=== PATIENT | female | born 1950 | race Caucasian/White ===

== ENCOUNTER 2021-02-13 21:46 | Inpatient (IN) | payer MEDICARE, OTHER ==
[~2021-02-13] VITALS: Ht 162.6 cm; Wt 86.6 kg
[2021-02-13] MEDS ORDERED: VALP250C3 PO (22:26)
[2021-02-13] MEDS ORDERED: DOCU100C36 PO (22:26)
[2021-02-13] MEDS ORDERED: ACET-2154 PO (22:26)
[2021-02-13] MEDS ORDERED: GUAI5SYR PO (22:26)
[2021-02-13] MEDS ORDERED: ZOLP5TAB8 PO (22:26)
[2021-02-13] MEDS ORDERED: PANT40TA49 PO (22:26)
--- NOTE | 2021-02-13 22:35 | NUR ---
Medically cleared by ERMD.
[2021-02-13] MEDS ORDERED: DOCUSATE SODIUM 100 MG CAPSULE PO PRN (23:00)
--- NOTE | 2021-02-13 23:38 | NUR ---
COVID RESULTED. TRANSFERED PATIENT TO MHU VIA GURNY.
[2021-02-14] MEDS ORDERED: MAG HYDROX/AL HYDROX/SIMETH 30 ML LIQUID UDC PO PRN (00:15)
[2021-02-14] MEDS ORDERED: LORAZEPAM 1 MG TABLET PO PRN (00:15)
[2021-02-14] MEDS ORDERED: ZOLPIDEM 5 MG TABLET PO PRN (00:15)
[2021-02-14] MEDS ORDERED: MAGNESIUM HYDROXIDE 30 ML LIQUID UDC PO PRN (00:15)
[2021-02-14] MEDS ORDERED: BLOOD SUGAR DIAGNOSTIC 1 EACH STRIP VI ONE (00:15)
--- NOTE | 2021-02-14 00:33 | NUR ---
GPS: Admitted to unit earlier a 70 yr.old female under the care of /Ulysses HYDRAULIC PRESS IN OPERATOR. Pt.is on a 72 hour hold for GD. Pt.has been making statements not consistent with reality and unable to provide food,halfway and clothing due to a mental disorder. Pt.is alert to self only. Confused,disoriented and thinks she's in the hosp.to have surgery tomorrow. Reality re-orientation provided. Re-directed prn. Pt's advisement/pt's rights booklet given. Unit rules explained. Personal belongings/skin assessment completed. Safe environment provided. Will continue to monitor behavior. Denies SI/HI.
[2021-02-14] MEDS: PANTOPRAZOLE SODIUM 40 MG TABLET.DR PO SCH (06:28)
--- NOTE | 2021-02-14 06:43 | NUR ---
GPS: Pt.slept 4 hrs.last night. Refused Protonix at this time despite explanation of importance. Fall precautions observed. Will continue to monitor and re-direct prn.
[2021-02-14 07:30] VITALS: BP 132/90
[2021-02-14] MEDS ORDERED: VALPROIC ACID 250 MG CAPSULE PO SCH (09:00)
--- NOTE | 2021-02-14 09:00 | NUR ---
GPS: pt alert and verbally responsive. cooperative with care. pt feels guarded at first but able to verbalized need and asked for a mask. pt medication given and tolerated well. pt encouraged with food intake and she was delusional and stated that per MD, she cannot take the food because she will undergo surgery. redirected pt that she does not have any surgery schedule.
--- NOTE | 2021-02-14 09:31 | NUR ---
Department of Mental Health: SW contacted Department of Mental Health ([phone]) and spoke with Gita who stated pt does not have a conservator.
--- NOTE | 2021-02-14 09:34 | NUR ---
FIREARMS REPORT: Web Developer Programmer completed and submitted a [employer] firearms report for 5150 grave disability certification. A copy of report has been placed in patient chart.
--- NOTE | 2021-02-14 09:54 | NUR ---
CAR Initial Discharge: Patient was from a guest house located at [address] [place] [id number]; ([phone]), however, guest house has been closed down. This SW confirmed with admin. Pt will need a nursing facility. Pt does not have any family members. SW will work with the MD and pt to coordinate appropriate discharge.
--- NOTE | 2021-02-14 11:01 | NUR ---
SNF Contact: SW spoke with naheed Brewer from [facility] who stated pt is accepted.
--- NOTE | 2021-02-14 11:20 | NUR ---
[facility]: SW spoke with Christina ([phone]) who stated that the guest house has been closed and that pt has no family. She stated that they were pt's payee and take care of pt's finances. Christina stated pt does not have a conservator or DPOA. She shared she would want to know where pt will go because they help her with fiances.
[2021-02-14] MEDS: DIVALPROEX SPRINKLE 125 MG CAP.SPRINK PO SCH ×2 (14:26→16:40)
[2021-02-14 16:04] VITALS: BP 107/65
[2021-02-14] MEDS: OLANZAPINE 5 MG TABLET PO SCH (16:40)
--- NOTE | 2021-02-14 17:20 | NUR ---
GPS: Pt alert. able to take medication and tolerated well. episode of paranoia this morning when pt refusing to have a breakfast because she will have surgery. redirected pt to reality.
[2021-02-14 20:11] VITALS: BP 116/74
[2021-02-15] MEDS: PANTOPRAZOLE SODIUM 40 MG TABLET.DR PO SCH (06:28)
[2021-02-15 07:30] VITALS: BP 118/62
[2021-02-15 08:17] LABS: MEAN CORPUSCULAR HEMOGLOBIN 32.9 uug (24.7-32.8); MEAN CORPUSCULAR VOLUME 92.6 fL (75.5-95.3); PLATELET COUNT (AUTO) 211 K/uL (179-408)
[2021-02-15 08:42] LABS: CREATININE 0.8 mg/dL (0.6-1.3); POTASSIUM 3.8 mmol/L (3.5-5.1)
[2021-02-15] MEDS: OLANZAPINE 5 MG TABLET PO SCH ×2 (08:51→16:16)
[2021-02-15] MEDS: DIVALPROEX SPRINKLE 125 MG CAP.SPRINK PO SCH ×3 (08:51→16:16)
[2021-02-15 09:19] LABS: THYROID STIMULATING HORMONE 1.82 mIU/mL (0.358-3.740)
[2021-02-15 16:00] VITALS: BP 119/58
[2021-02-15 20:04] VITALS: BP 120/60
[2021-02-16] MEDS: PANTOPRAZOLE SODIUM 40 MG TABLET.DR PO SCH (06:37)
[2021-02-16 08:00] VITALS: BP 108/48
[2021-02-16] MEDS: DIVALPROEX SPRINKLE 125 MG CAP.SPRINK PO SCH ×3 (08:01→16:09)
[2021-02-16] MEDS: OLANZAPINE 5 MG TABLET PO SCH ×2 (08:01→16:09)
[2021-02-16 16:26] VITALS: BP 124/75
[2021-02-16 19:47] VITALS: BP 126/63
[2021-02-17] MEDS: PANTOPRAZOLE SODIUM 40 MG TABLET.DR PO SCH (06:31)
[2021-02-17] MEDS: DIVALPROEX SPRINKLE 125 MG CAP.SPRINK PO SCH ×3 (08:11→17:02)
[2021-02-17] MEDS: OLANZAPINE 5 MG TABLET PO SCH ×2 (08:11→17:01)
[2021-02-17 08:25] VITALS: BP 100/56
[2021-02-17 15:57] VITALS: BP 103/76
--- NOTE | 2021-02-17 17:43 | NUR ---
received patient in bed resting comfortably. compliant with medications and care.encourage patient to attend in group activity, no aggressive or combative behavior noted.
[2021-02-17 20:06] VITALS: BP 121/72
--- NOTE | 2021-02-17 20:15 | NUR ---
RECEIVED PATIENT IN THE DAY ROOM. SHE IS NOTED A/O X 1. SHE IS NOTED POOR HISTORIAN, GUARDED AND POOR INSIGHT INTO HER ADMISSION TO MHU. ON INTERVIEW, SHE STATED, "I AM GOING HOME TOMORROW". "I DON'T NEED ANY HELP AT HOME BECAUSE I CAN DO EVERYTHING FOR MYSELF". (PATIENT IS NOT FOR D/C TOMORROW) PATIENT WAS REASSURED FOR HER SAFETY. SAFETY AND FALL PRECAUTION IN PLACE. V/S STABLE, PATIENT WAS GIVEN PO FLUIDS AND SNACKS. WILL CONTINUE TO MONITOR.
[2021-02-18] MEDS: PANTOPRAZOLE SODIUM 40 MG TABLET.DR PO SCH (06:07)
[2021-02-18 08:02] VITALS: BP 104/62
[2021-02-18] MEDS: OLANZAPINE 5 MG TABLET PO SCH ×2 (08:27→17:07)
[2021-02-18] MEDS: DIVALPROEX SPRINKLE 125 MG CAP.SPRINK PO SCH ×3 (08:27→17:07)
[2021-02-18 16:04] VITALS: BP 114/66
[2021-02-18] MEDS: ACETAMINOPHEN 325 MG TABLET PO PRN (17:50)
--- NOTE | 2021-02-18 18:20 | NUR ---
received patient in bed resting comfortably. compliant with medications and care.patient with poor insight and judgement no interaction with other peers ,encourage patient to attend in group activity, no aggressive or combative behavior noted.
[2021-02-18 20:12] VITALS: BP 114/66
--- NOTE | 2021-02-18 22:00 | NUR ---
Received to care, isolating in room, by self. fresh water and bedtime snacks were provided. Compliant with staff, but somewhat guarded, upon approach. Denies hearing voices, or any other similar psychotic sx. No medications scheduled for bedtime, and she declined any PRN medications for anxiety, or sleep. As of 0, she appears to be asleep. No distress noted. Will continue to monitor closely.
--- NOTE | 2021-02-19 06:00 | NUR ---
slept 6 hours total. continues to sleep. no distress noted.
[2021-02-19] MEDS: PANTOPRAZOLE SODIUM 40 MG TABLET.DR PO SCH (06:28)
[2021-02-19 08:00] VITALS: BP 100/63
[2021-02-19] MEDS: DIVALPROEX SPRINKLE 125 MG CAP.SPRINK PO SCH ×3 (08:32→16:36)
[2021-02-19] MEDS: OLANZAPINE 5 MG TABLET PO SCH ×2 (08:32→16:36)
[2021-02-19] MEDS: ACETAMINOPHEN 325 MG TABLET PO PRN (08:38)
--- NOTE | 2021-02-19 12:21 | NUR ---
SNF Referral: CAR faxed clinicals to Nichole from [facility] for placement option.
[2021-02-19 16:12] VITALS: BP 98/62
--- NOTE | 2021-02-19 18:21 | NUR ---
patient denies any SI/HI remains isolative no interaction with other peers,compliant with all medication.vital sign stable.
[2021-02-19 20:19] VITALS: BP 112/57
[2021-02-20] MEDS: PANTOPRAZOLE SODIUM 40 MG TABLET.DR PO SCH (06:04)
--- NOTE | 2021-02-20 06:42 | NUR ---
GPS: Pt.slept for 6 hrs.last night. Showered earlier independently. Denies SI/HI. Safe environment provided. Re-assured and re-directed prn. Will continue to monitor.
[2021-02-20 07:30] VITALS: BP 98/53
--- NOTE | 2021-02-20 07:30 | NUR ---
Received report from MICHELLE Orosco. All questions, comments, and concerns were addressed. Received patient resting quietly in her assigned bed. Bed is in low and locked position.
[2021-02-20] MEDS: OLANZAPINE 5 MG TABLET PO SCH ×2 (08:01→16:09)
[2021-02-20] MEDS: DIVALPROEX SPRINKLE 125 MG CAP.SPRINK PO SCH ×3 (08:01→16:09)
--- NOTE | 2021-02-20 11:21 | NUR ---
SNF Referral: SW spoke with Nichole syed at [facility] who stated patient is accepted for placement.
--- NOTE | 2021-02-20 15:02 | NUR ---
CAR PC Hearing: Patient had 5250 probable cause hearing today and it was upheld for grave disability.
[2021-02-20] MEDS: ACETAMINOPHEN 325 MG TABLET PO PRN (16:09)
[2021-02-20 16:44] VITALS: BP 97/58
--- NOTE | 2021-02-20 18:01 | NUR ---
Patient is alert and oriented. She is quiet, isolative, withdrawn, and guarded. Patient has minimal interaction with staff and others. Patient is compliant with medication, no adverse reaction noted. Patient denies suicidal and homicidal ideation, denies hallucinations. Patient is able to ambulate independently. Patient is able to perform self care and ADL's independently. Patient encouraged to communicate needs to staff, educated about impulse control, and encouraged to participate in the unit groups and therapeutic milieu.
[2021-02-20] MEDS: ATORVASTATIN 10 MG TABLET PO SCH (20:31)
[2021-02-20 20:47] VITALS: BP 143/88
[2021-02-21] MEDS: PANTOPRAZOLE SODIUM 40 MG TABLET.DR PO SCH (06:14)
[2021-02-21 07:30] VITALS: BP 96/47
[2021-02-21] MEDS: OLANZAPINE 5 MG TABLET PO SCH ×2 (10:25→16:49)
[2021-02-21] MEDS: DIVALPROEX SPRINKLE 125 MG CAP.SPRINK PO SCH ×3 (10:25→16:49)
[2021-02-21] MEDS: ACETAMINOPHEN 325 MG TABLET PO PRN (13:01)
[2021-02-21 15:39] VITALS: BP 137/81
--- NOTE | 2021-02-21 18:02 | NUR ---
GPS: pt alert and verbally responsive when asked. pt was given tylenol this afternoon after pt complaint of back pain. medications given and tolerated well. pt silent when inside the bedroom and guarded but replies to SN when asked. no noted episode of talking to self.
[2021-02-21 20:00] VITALS: BP 102/54
[2021-02-21] MEDS: ATORVASTATIN 10 MG TABLET PO SCH (20:12)
[2021-02-22 07:30] VITALS: BP 105/60
[2021-02-22] MEDS: DIVALPROEX SPRINKLE 125 MG CAP.SPRINK PO SCH ×3 (08:21→17:42)
[2021-02-22] MEDS: PANTOPRAZOLE SODIUM 40 MG TABLET.DR PO SCH (08:21)
[2021-02-22] MEDS: OLANZAPINE 5 MG TABLET PO SCH ×2 (08:21→17:42)
--- NOTE | 2021-02-22 14:22 | NUR ---
[facility]: CAR spoke with Christina ([phone]) and stated pt will be transferred to [facility] on Sunday 02/25 as they are pt's payee.
[2021-02-22 17:15] VITALS: BP 110/59
[2021-02-22] MEDS: ACETAMINOPHEN 325 MG TABLET PO PRN (18:22)
--- NOTE | 2021-02-22 18:30 | NUR ---
received to care, lying in bed, isolative, compliant with medications, no distress noted.
[2021-02-22 20:15] VITALS: BP 107/62
[2021-02-22] MEDS: ATORVASTATIN 10 MG TABLET PO SCH (21:43)
--- NOTE | 2021-02-22 22:00 | NUR ---
received to care, lying in bed. isolative, but pleasant upon approach. has poor insight into her situation. compliant with medications. no distress noted.
--- NOTE | 2021-02-23 06:00 | NUR ---
slept 8.0 hours. continues to sleep. no distress noted.
[2021-02-23] MEDS: PANTOPRAZOLE SODIUM 40 MG TABLET.DR PO SCH (06:50)
[2021-02-23 07:30] VITALS: BP 116/71
[2021-02-23] MEDS: OLANZAPINE 5 MG TABLET PO SCH ×2 (08:59→16:24)
[2021-02-23] MEDS: DIVALPROEX SPRINKLE 125 MG CAP.SPRINK PO SCH ×3 (08:59→16:24)
--- NOTE | 2021-02-23 11:28 | NUR ---
Gps/Director Federal- Stayed in her room in bed most of the morning, compliant with routine am meds. interactive when engaged . Encouraged going to the dinning room during meals.
[2021-02-23 16:00] VITALS: BP 96/51
[2021-02-23 20:00] VITALS: BP 127/67
[2021-02-23] MEDS: ACETAMINOPHEN 325 MG TABLET PO PRN (20:27)
[2021-02-23] MEDS: ATORVASTATIN 10 MG TABLET PO SCH (20:27)
--- NOTE | 2021-02-23 22:00 | NUR ---
received to care, isolative, pleasant, lying in bed. able to make her needs known. continues to have poor insight into her situation. reality orientation provided, as needed. ambulates to nurses station when she needs something. PRN Tylenol was given at 2026, for head ache. as of 2199, she appears to be falling asleep. stated good pain relief from Tylenol. no distress noted. will continue to monitor closely.
--- NOTE | 2021-02-24 06:00 | NUR ---
slept 8.5 hours. continues to sleep. no distress noted.
[2021-02-24 06:34] LABS: HEMATOCRIT 37.9 % (31.2-41.9); MEAN CORPUSCULAR HEMOGLOBIN 32.6 uug (24.7-32.8); MEAN CORPUSCULAR VOLUME 92.6 fL (75.5-95.3); PLATELET COUNT (AUTO) 232 K/uL (179-408)
[2021-02-24] MEDS: PANTOPRAZOLE SODIUM 40 MG TABLET.DR PO SCH (06:45)
[2021-02-24 07:21] LABS: BILIRUBIN,TOTAL 0.4 mg/dL (0.2-1.0); CREATININE 0.8 mg/dL (0.6-1.3); MAGNESIUM 1.5 mg/dL (1.8-2.4); PHOSPHOROUS 3.6 mg/dL (2.5-4.9); POTASSIUM 4.1 mmol/L (3.5-5.1); TOTAL PROTEIN, SERUM 6.3 g/dL (6.4-8.2)
[2021-02-24 07:30] VITALS: BP 101/60
[2021-02-24] MEDS: OLANZAPINE 5 MG TABLET PO SCH ×2 (08:24→16:34)
[2021-02-24] MEDS: DIVALPROEX SPRINKLE 125 MG CAP.SPRINK PO SCH ×3 (08:24→16:35)
[2021-02-24] MEDS ORDERED: MAGNESIUM OXIDE 400 MG TABLET PO ONE (12:00)
--- NOTE | 2021-02-24 14:31 | NUR ---
Gps/Printed Circuit Boards Laminator- Covid swab test done, result was negative. . Discharge planning for tomorrow, patient was well informed.
[2021-02-24 16:00] VITALS: BP 105/58
[2021-02-24 20:00] VITALS: BP 115/71
[2021-02-24] MEDS: ACETAMINOPHEN 325 MG TABLET PO PRN (20:11)
[2021-02-24] MEDS: ATORVASTATIN 10 MG TABLET PO SCH (20:11)
[2021-02-25] MEDS: PANTOPRAZOLE SODIUM 40 MG TABLET.DR PO SCH (06:16)
[2021-02-25 07:48] VITALS: BP 96/60
--- NOTE | 2021-02-25 08:03 | NUR ---
Discharge Note: Patient will be discharged to assisted facility to [facility] [address] [place] [address]; ([phone]) via Ambulance transportation at 1pm. Inside Barrel Polisher spoke with Nichole, Legal Office Administrator at [facility] ([phone]) who stated patient will be accepted at facility today. Patient is alert and oriented x2 and is not able to plan for self-care at this time but is willing to accept care provided for her at the facility. Patient denies any suicidal or homicidal ideations. Patient is aware and agreeable with discharge plans. Patient does not have any support at this time. Patient will continue to follow-up with her (psychiatrist) Dr. Mckeon and (lot porter) Dr. Cortes at [facility]. Patient presents with euthymic mood and congruent affect.
[2021-02-25] MEDS: DIVALPROEX SPRINKLE 125 MG CAP.SPRINK PO SCH ×2 (08:47→13:00)
[2021-02-25] MEDS: OLANZAPINE 5 MG TABLET PO SCH (08:47)
--- NOTE | 2021-02-25 14:15 | NUR ---
GPS: Nursing Notes: Discharge Notes: Patient is awake and responding to her name, cooperative with nursing care, compliant with her medications, following staff directions, denies SI/HI, denies AH/VH, denies pain or discomfort, denies SOB, discharge to [facility] at [address] [place] [id number] , report given to facility's nurse - Justo, took all her belongings with her, transported to facility via ambulance. Patient will follow up with Dr. Mckeon (psychiatrist) and Dr. Cortes (manager storage) for aftercare at the facility.
== END 2021-02-25 14:15 | DRG 885 ==
LOC: ER 21:49 → GPS 22:43
PROVIDERS: ADMIT Psychiatry & Neurology Psychiatry; ATTEND Student in an Organized Health Care Education/Training Program
DX: F25.9 Schizoaffective disorder, unspecified (principal); F29 Unspecified psychosis not due to a substance or known physiological condition; Z79.899 Other long term (current) drug therapy; E78.5 Hyperlipidemia, unspecified; E66.9 Obesity, unspecified; Z68.32 Body mass index [BMI] 32.0-32.9, adult; Z20.822 Contact with and (suspected) exposure to COVID-19; D35.2 Benign neoplasm of pituitary gland; F03.90 Unspecified dementia, unspecified severity, without behavioral disturbance, psychotic disturbance, mood disturbance, and anxiety; K21.9 Gastro-esophageal reflux disease without esophagitis; Z87.440 Personal history of urinary (tract) infections
CPT/HCPCS: 36415; 83735; 84100; 84443; 85025; 93005; 97161; A4663

== ENCOUNTER 2022-07-24 16:29 | Inpatient (IN) | payer MEDICARE, OTHER ==
[~2022-07-24] VITALS: Ht 162.6 cm; Wt 81.6 kg
[~2022-07-24 16:29] MED LIST: ACET-2154 PO; DOCU100C36 PO; GUAI5SYR PO; PANT40TA49 PO
--- NOTE | 2022-07-24 17:09 | NUR ---
71 years old female sent to er for abd pain evaluation, no cp, no sob no nausea vomiting diarrhea, constipation.
[2022-07-24 17:26] LABS: HEMATOCRIT 42.1 % (31.2-41.9); MEAN CORPUSCULAR HEMOGLOBIN 30.1 uug (24.7-32.8); MEAN CORPUSCULAR VOLUME 88.3 fL (75.5-95.3); PLATELET COUNT (AUTO) 243 K/uL (179-408)
[2022-07-24 17:34] LABS: CREATININE 0.8 mg/dL (0.6-1.3); POTASSIUM 4.4 mmol/L (3.5-5.1)
[2022-07-24 17:40] LABS: BILIRUBIN,DIRECT 0.2 mg/dL (0.0-0.2); BILIRUBIN,TOTAL 0.5 mg/dL (0.2-1.0); TOTAL PROTEIN, SERUM 7.3 g/dL (6.4-8.2)
[2022-07-24] MEDS ORDERED: DIVA125C5 MT (18:09)
[2022-07-24] MEDS ORDERED: ATOR10TA (18:09)
[2022-07-24] MEDS ORDERED: OLAN5TAB70 MT (18:09)
[2022-07-24] MEDS ORDERED: FAMO20TA8 MT (18:09)
--- NOTE | 2022-07-24 18:46 | NUR ---
patient resting no pain sl inserted tolerated well awaiting for admit MS bed.
[2022-07-24 19:33] LABS: *BILIRUBIN,URIN NEGATIVE (NEGATIVE); *BLOOD, URINE NEGATIVE (NEGATIVE); *CLARITY,URINE CLEAR (CLEAR); *COLOR,URINE YELLOW (YELLOW); *KETONES,URINE NEGATIVE (NEGATIVE); *UROBILINOGEN,URINE 0.2 E.U./dl (NORMAL); LEUKOCYTE ESTERASE ,URINE NEGATIVE (NEGATIVE); NITRITE, URINE NEGATIVE (NEGATIVE); UGLUCOSE NEGATIVE (NEGATIVE)
--- NOTE | 2022-07-24 19:43 | NUR ---
called 3rd floor to give report, spoke with Yamila BANERJEE. Will call back once RN is ready to get report
[2022-07-24] MEDS ORDERED: REMEDY ESSENTIAL ZINC PASTE 113 GM TP PRN (19:45)
[2022-07-24] MEDS ORDERED: DOCUSATE SODIUM 100 MG CAPSULE PO PRN (19:45)
[2022-07-24] MEDS ORDERED: ONDANSETRON 4 MG/2 ML VIAL IV PRN (19:45)
[2022-07-24] MEDS ORDERED: ACETAMINOPHEN 325 MG TABLET PO PRN (19:45)
[2022-07-24] MEDS ORDERED: MAGNESIUM HYDROXIDE 30 ML LIQUID UDC PO PRN (19:45)
--- NOTE | 2022-07-24 20:02 | NUR ---
report given to Lashae BANERJEE
[2022-07-24 20:20] VITALS: BP 161/85
--- NOTE | 2022-07-24 20:32 | NUR ---
Pt. admitted to M/S room 319 , under care of Dr. Cortes Belongs List completed Lashae RN aware of patient's arrival
--- NOTE | 2022-07-24 22:00 | NUR ---
RECEIVED PT VIA WHEELCHAIR ASSISTED BY RN. ADMITTED 71 YR OLD FEMALE DIAGNOSED WITH FAILURE TO THRIVE UNDER DR. MORLEY. AOX3. ABLE TO VERBALIZE NEEDS. BRP. DENIES PAIN OR DISCOMFORT. IV SITE ON R HAND G 20 INTACT AND PATENT, IVF INFUSING WELL. ROUTINE ADMISSION DONE. ALL NEEDS ATTENDED. SAFETY MEASURES MAINTAINED.
[2022-07-25] MEDS: IV NS 1000 ML 1,000 ML IV PRN ×2 (03:52→15:28)
[2022-07-25 04:00] VITALS: BP 104/58
[2022-07-25] MEDS: PANTOPRAZOLE SODIUM 40 MG TABLET.DR PO SCH (06:51)
[2022-07-25 06:55] LABS: HEMATOCRIT 39.4 % (31.2-41.9); MEAN CORPUSCULAR HEMOGLOBIN 29.8 uug (24.7-32.8); MEAN CORPUSCULAR VOLUME 88.4 fL (75.5-95.3); PLATELET COUNT (AUTO) 230 K/uL (179-408)
[2022-07-25 07:09] LABS: CREATININE 0.7 mg/dL (0.6-1.3); MAGNESIUM 1.5 mg/dL (1.8-2.4); PHOSPHOROUS 4.1 mg/dL (2.5-4.9); POTASSIUM 3.8 mmol/L (3.5-5.1)
[2022-07-25] MEDS: DIVALPROEX SPRINKLE 125 MG CAP.SPRINK PO SCH (09:06)
[2022-07-25] MEDS: OLANZAPINE 5 MG TABLET PO SCH (09:06)
[2022-07-25] MEDS: MAGNESIUM SULFATE/D5W 100 ML IV SCH ×2 (09:33→10:52)
[2022-07-25 11:52] VITALS: BP 95/55
--- NOTE | 2022-07-25 12:00 | NUR ---
Paola HALL notified me of pt's low BP. She took it 2 times to confirm. Pt lying in bed, sleeping intermittently, no c/o lightheadedness or discomfort. Will continue to monitor.
--- NOTE | 2022-07-25 12:40 | NUR ---
Pt left for NM study with Tech. No s/s of dizziness or distress noted. Tech notified that the study should take about 2 hours.
[2022-07-25 16:38] VITALS: BP 106/63
[2022-07-25 20:00] VITALS: BP 121/68
[2022-07-26 05:12] VITALS: BP 96/53
[2022-07-26] MEDS: IV NS 1000 ML 1,000 ML IV PRN (05:24)
[2022-07-26] MEDS: PANTOPRAZOLE SODIUM 40 MG TABLET.DR PO SCH (06:24)
[2022-07-26 07:39] LABS: HEMATOCRIT 36.7 % (31.2-41.9); MEAN CORPUSCULAR VOLUME 88.8 fL (75.5-95.3); PLATELET COUNT (AUTO) 223 K/uL (179-408)
[2022-07-26] MEDS: OLANZAPINE 5 MG TABLET PO SCH (08:41)
[2022-07-26 08:48] LABS: CREATININE 0.8 mg/dL (0.6-1.3); MAGNESIUM 1.5 mg/dL (1.8-2.4); POTASSIUM 3.9 mmol/L (3.5-5.1)
[2022-07-26] MEDS: DIVALPROEX SPRINKLE 125 MG CAP.SPRINK PO SCH (08:48)
[2022-07-26] MEDS ORDERED: MAGNESIUM SULFATE/D5W 100 ML IV SCH (10:30)
[2022-07-26] MEDS ORDERED: PIPERACILLIN SODIUM/TAZOBACTAM 3.375 G in IV DEXTROSE 5% 50 ML IV SCH (11:00)
--- NOTE | 2022-07-26 11:40 | NUR ---
Pt presented with a cough this AM. Pt requesting "something" for it. Notified Dr. Sebastian MCMAHON prescribed Robitussin 10 mls [id number] PRN cough.
[2022-07-26 11:43] VITALS: BP 97/47
[2022-07-26] MEDS ORDERED: GUAIFENESIN/CODEINE 5 ML LIQUID UDC PO PRN (11:45)
[2022-07-26] MEDS: MAGNESIUM SULFATE/D5W 100 ML IV SCH ×2 (12:00→13:47)
[2022-07-26 16:34] VITALS: BP 119/73
[2022-07-26] MEDS: PIPERACILLIN SODIUM/TAZOBACTAM 3.375 G in IV DEXTROSE 5% 100 ML IV SCH (17:12)
[2022-07-26 20:31] VITALS: BP 106/58
[2022-07-27] MEDS: PIPERACILLIN SODIUM/TAZOBACTAM 3.375 G in IV DEXTROSE 5% 100 ML IV SCH ×2 (02:44→10:30)
[2022-07-27 04:49] VITALS: BP 104/56
[2022-07-27] MEDS: PANTOPRAZOLE SODIUM 40 MG TABLET.DR PO SCH (06:12)
[2022-07-27] MEDS: DIVALPROEX SPRINKLE 125 MG CAP.SPRINK PO SCH (08:26)
[2022-07-27] MEDS: OLANZAPINE 5 MG TABLET PO SCH (08:26)
[2022-07-27] MEDS ORDERED: MUPIROCIN 2% OINT 22 GM TUBE NS SCH (10:00)
[2022-07-27 11:35] VITALS: BP 96/51
--- NOTE | 2022-07-27 12:33 | NUR ---
PATIENT SEEN BY DR MORLEY WITH DISCHARGE ORDER AWAITING FOR REHABILITATION PROGRAM MANAGER EARLY CHILDHOOD TEACHER ASSISTANT TO LET ME KNOW WHERE PATIENT IS GOING.
--- NOTE | 2022-07-27 14:31 | NUR ---
PATIENT IS BEING PREPPED FOR DISCHARGE COVID 19 SPECIMEN OBTAINED AND SENT TO THE LAB.[facility]
[2022-07-27 16:00] VITALS: BP 103/50
--- NOTE | 2022-07-27 16:55 | NUR ---
CALLED [facility] AND REPORT GIVEN TO AKI BANERJEE FOR CONTINUING CARE PATIENT WILL BE PICKED UP BY [facility] AT ABOUT 1700 PATIENT AWARE AND SIGNED THE DISCHARGE PAPERS.
--- NOTE | 2022-07-27 17:19 | NUR ---
[facility] HERE AND PATIENT DISCHARGED TO [facility] IN SATISFACTORY CONDITION.DENIES C/O AT THIS TIME.
== END 2022-07-27 17:40 | DRG 446 ==
LOC: ER 16:29 → MEDSURG3 18:30
PROVIDERS: ADMIT Internal Medicine; ATTEND Internal Medicine
DX: K80.00 Calculus of gallbladder with acute cholecystitis without obstruction (principal); R62.7 Adult failure to thrive; G40.909 Epilepsy, unspecified, not intractable, without status epilepticus; J44.9 Chronic obstructive pulmonary disease, unspecified; E86.0 Dehydration; E78.5 Hyperlipidemia, unspecified; Z88.2 Allergy status to sulfonamides; I10 Essential (primary) hypertension; F20.9 Schizophrenia, unspecified; E66.9 Obesity, unspecified; Z68.30 Body mass index [BMI] 30.0-30.9, adult; D35.2 Benign neoplasm of pituitary gland; F31.9 Bipolar disorder, unspecified; Z20.822 Contact with and (suspected) exposure to COVID-19
CPT/HCPCS: 36415; 78445; 83690; 83735; 84100; 85025; A4663; A9537; G0378; J2543; J3475; J7040